=== PATIENT | male | born 1960 | race Caucasian/White ===

== ENCOUNTER → 2017-09-17 | Outpatient (CLI) | payer OTHER | END | disposition home or self-care (01) | LOC: US 12:05 | DX: M25.472 Effusion, left ankle (principal); M71.22 Synovial cyst of popliteal space [Baker], left knee | CPT/HCPCS: 93971 ==

== ENCOUNTER 2020-06-30 08:59 | Day surgery (SDC) | payer OTHER ==
[~2020-06-30] VITALS: Ht 182.9 cm; Wt 122.5 kg
[~2020-06-30 08:59] MED LIST: ASPI-630 PO; CHOL500050 PO; DOXY100C2 PO; EZET10TA20 PO; HYDROmorphone 2 MG/ML VIAL IVP PRN; ILEVRO OS; IV RINGERS,LACTATED 1000ML 1,000 ML IV SCH; LATA2.5D2 OU; LISI20TA18 PO; MONT10TA49 PO; MORPHINE SULFATE 2 MG/ML VIAL. IVP PRN; PROCHLORPERAZINE 10 MG/2 ML VIAL. IVP PRN; TIMO5DRO26 OS; fentaNYL PF VIAL 100 MCG/2 ML VIAL IVP PRN
[2020-06-30] MEDS ORDERED: SEVOFLURANE 61 TO 120 MINUTES. IH ONE (09:17)
[2020-06-30] MEDS ORDERED: LIDOCAINE 2% PF 5 ML VIAL. ONE (09:17)
[2020-06-30] MEDS ORDERED: DEXAMETHASONE SOD PHOS 4 MG/ML VIAL ONE (09:17)
[2020-06-30] MEDS ORDERED: fentaNYL PF VIAL 100 MCG/2 ML VIAL ONE (09:17)
[2020-06-30] MEDS ORDERED: ONDANSETRON PF 4 MG/2 ML VIAL. ONE (09:17)
[2020-06-30] MEDS ORDERED: MIDAZOLAM HCL/PF 2 MG/2 ML VIAL. ONE (09:17)
[2020-06-30] MEDS ORDERED: PROPOFOL 10 MG/ML (20ML) VIAL. IV ONE (09:17)
--- NOTE | 2020-06-30 09:31 | PDOC1 ---
History and Physical Date of Admission Date of Admission DATE: 06/30/20 TIME: :25 History of Present Illness History of Present Illness The patient is a 60 year old male who has been experiencing left temporal pain and left visual problems for several months. He has been followed by opthalmology and received many treatments. His symptoms have persisted however, and he was referred by his PCP for a temporal artery biopsy out of concern for possible temporal arteritis. Past Medical History Past Medical History hypertension, glaucoma, rheumatoid arthritis Past Surgical History Past Surgical History bilateral inguinal hernia repair, rotator cuff surgery, tonsillectomy Family History Family History Father with COPD, dementia, Glaucoma in family Social History Smoke: No Current Medications Current Medications Current Medications Fentanyl Citrate (Fentanyl 2ml Vial) 25 mcg PRN Q5MIN PRN IVP MILD PAIN 1-3; Start 06/30/20 at 06:00; Stop 07/01/20 at 05:59 Fentanyl Citrate (Fentanyl 2ml Vial) 50 mcg PRN Q5MIN PRN IVP MODERATE PAIN 4- 6; Start 06/30/20 at 06:00; Stop 07/01/20 at 05:59 Morphine Sulfate (Morphine Sulfate) 1 mg PRN Q10MIN PRN IVP SEVERE PAIN 7-10; Start 06/30/20 at 06:00; Stop 07/01/20 at 05:59 Ringer's Solution 1,000 ml @ 30 mls/hr Q24H IV ; Start 06/30/20 at 06:00; Stop 06/30/20 at 17:59 Hydromorphone HCl (Dilaudid) 0.5 mg PRN Q10MIN PRN IVP SEVERE PAIN 7-10, 2nd CHOICE; Start 06/30/20 at 06:00; Stop 07/01/20 at 05:59 Prochlorperazine Edisylate (Compazine) 5 mg PACU PRN PRN IVP NAUSEA, MRX1; Start 06/30/20 at 06:00; Stop 07/01/20 at 05:59 Cefazolin Sodium/ Dextrose 50 ml @ 100 mls/hr 1X PREOP PRN IV PRIOR TO PROCEDURE; Start 06/30/20 at 06:00; Stop 06/30/20 at 18:00 Sevoflurane (Ultane) 60 ml STK-MED ONCE IH ; Start 06/30/20 at 09:17; Stop 06/30/20 at 09:17; Status DC Fentanyl Citrate (Fentanyl 2ml Vial) 100 mcg STK-MED ONCE .ROUTE ; Start 06/30/20 at 09:17; Stop 06/30/20 at 09:17; Status DC Midazolam HCl (Versed) 2 mg STK-MED ONCE .ROUTE ; Start 06/30/20 at 09:17; Stop 06/30/20 at 09:17; Status DC Dexamethasone Sodium Phosphate (Decadron) 4 mg STK-MED ONCE .ROUTE ; Start 06/30/20 at 09:17; Stop 06/30/20 at 09:18; Status DC Propofol (Diprivan) 200 mg STK-MED ONCE IV ; Start 06/30/20 at 09:17; Stop 06/30/20 at 09:18; Status DC Lidocaine HCl (Lidocaine Pf 2% Vial) 5 ml STK-MED ONCE .ROUTE ; Start 06/30/20 at 09:17; Stop 06/30/20 at 09:18; Status DC Ondansetron HCl (Zofran) 4 mg STK-MED ONCE .ROUTE ; Start 06/30/20 at 09:17; Stop 06/30/20 at 09:18; Status DC Active Scripts Active Reported [Ilevro] 1 Drop OS BID Betimol (Timolol) 5 Ml Drops 1 Drop OS BID Xalatan (Latanoprost) 2.5 Ml Drops 1 Drop OU QHS Aspirin 81 Mg Tab.chew 81 Mg PO DAILY Vitamin D3 (Cholecalciferol (Vitamin D3)) 1,250 Mcg Capsule 10,000 Units PO DAILY Lisinopril 20 Mg Tablet 20 Mg PO DAILY Zetia (Ezetimibe) 10 Mg Tablet 10 Mg PO DAILY Singulair Tablet (Montelukast Sodium) 10 Mg Tablet 10 Mg PO DAILY PRN Doxycycline Hyclate 100 Mg Capsule 100 Mg PO DAILY Allergies Allergies: Coded Allergies: Sulfa (Sulfonamide Antibiotics) (Unverified Allergy, Intermediate, HIVES, 12/25/14) ALL SULFA Huzazpq-Zam-Rlb Reductase Inhibitor (Verified Adverse Reaction, Intermediate, 06/30/20) MUSCLE PAIN ROS General: No: Chills, Night Sweats, Fatigue, Malaise, Appetite, Other PSYCHOLOGICAL ROS: No: Anxiety, Behavioral Disorder, Concentration difficultie, Decreased libido, Depression, Disorientation, Hallucinations, Hostility, Irritablity, Memory difficulties, Mood Swings, Obsessive thoughts, Physical abuse, Sexual abuse, Sleep disturbances, Suicidal ideation, Other Eyes: Yes Other (halo vision L eye) HEENT: YES: Heacaches (L temporal) ALLERGY AND IMMUNOLOGY: No: Hives, Insect Bite Sensitivity, Itchy/Watery Eyes, Nasal Congestion, Post Nasal Drip, Seasonal Allergies, Other Hematological and Lymphatic: No: Bleeding Problems, Blood Clots, Blood Transfusions, Brusing, Night Sweats, Pallor, Swollen Lymph Nodes, Other ENDOCRINE: No: Breast Changes, Galactorrhea, Hair Pattern Changes, Hot Flashes, Malaise/lethargy, Mood Swings, Palpitations, Polydipsia/polyuria, Skin Changes, Temperature Intolerance, Unexpected Weight Changes, Other Cardiovascular: No Chest Pain, No Palpitations, No Orthopnea, No Paroxysmal Noc. Dyspnea, No Edema, No Lt Headedness, No Other Gastrointestinal: No Nausea, No Vomiting, No Abdominal Pain, No Diarrhea, No Constipation, No Melena, No Hematochezia, No Other Genitourinary: No Dysuria, No Frequency, No Incontinence, No Hematuria, No Retention, No Discharge, No Urgency, No Pain, No Flank Pain, No Other, No , No , No , No , No , No , No Musculoskeletal: No Gait Disturbance, No Joint Pain, No Joint Stiffness, No Joint Swelling, No Muscle Pain, No Muscular Weakness, No Pain In:, No Swelling In:, No Other Neurological: No Behavorial Changes, No Bowel/Bladder ControlChng, No Confusion, No Dizziness, No Gait Disturbance, No Headaches, No Impaired Coord/balance, No Memory Loss, No Numbness/Tingling, No Seizures, No Speech Problems, No Tremors, No Visual Changes, No Weakness, No Other Skin: No Dry Skin, No Eczema, No Hair Changes, No Lumps, No Mole Changes, No Mottling, No Nail Changes, No Pruritus, No Rash, No Skin Lesion Changes, No Other, No Acne Physical Exam General: Alert, Oriented X3 HEENT: Atraumatic, Other (L temporal pulse intact) Lungs: Clear to auscultation Heart: S1S2 Abdomen: Soft, No tenderness Rectal Exam: deferred Extremities: No clubbing, No cyanosis Skin: No rashes, No breakdown Neuro: Normal gait, Normal speech Psych/Mental Status: Mental status NL VTE Prophylaxis Ordered VTE Prophylaxis Devices: Yes VTE Pharmacological Prophylaxi: No Assessment/Plan Assessment/Plan Headache, L temporal pain, visual changes; L temporal artery biopsy was requested; I reviewed the details and risks of surgery with the patient. He understands and would like to proceed. Justifications for Admission Other Justification CINDI MARTINEZ MD Jun 30, 2020 09:31
[2020-06-30] MEDS ORDERED: BUPIVACAINE-EPI 0.5%-1:200000 MPF 30 ML VIAL. ONE (09:36)
[2020-06-30] MEDS ORDERED: GLYCOPYRROLATE 1 MG/5 ML VIAL. ONE (10:28)
[2020-06-30] MEDS ORDERED: ePHEDrine PF IN SALINE 50 MG/10 ML SYRINGE. IV ONE (10:28)
--- NOTE | 2020-06-30 11:23 | PDOC4 ---
Operative Note Operative Note Operative Note: Preoperative Diagnosis: Left temporal pain Postoperative Diagnosis: Same Procedure: Left temporal artery biopsy Surgeon: Robles Dope Worker: SASHA Guidry Anesthesia: General EBL: 10 mL Specimen: Left superficial temporal artery to pathology Drains: None Complications: None Indication: The patient is a 60-year-old male who is referred for temporal artery biopsy. He has been experiencing visual changes and left temporal pain for some time. The details and risks of surgery were discussed. The risks include bleeding, infection, facial nerve branch injury, scar tissue, pain, anesthetic risk, potential need for additional surgery procedure. He understands and would like to proceed. Description: The patient was taken to the operating room and placed supine in the operating table. General anesthesia was performed. The left temporal region was then shaved and prepped with Betadine and draped in a standard surgi kt manner. With a vascular Doppler the course of the temporal artery was traced out and marked on the skin. Were able to see both the frontal and parietal branches. An incision was made in the temporal region following the course of the frontal branch. Cautery dissection was carried through subcutaneous tissues. The temporal artery was identified in the superficial temporal fascia. The artery was mobilized from the surrounding tissues. A several centimeter segment of the artery was selected. The artery was ligated proximally and distally with 3-0 Vicryl. The middle portion was then excised and sent to pathology for evaluation. Hemostasis was good. The subcutaneous tissue was approximated with 3-0 Vicryl. The skin was closed with 4-0 Monocryl and infiltrated with half percent Marcaine with epinephrine. A Steri-Strip and dressing were applied. The patient tolerated the procedure well and was sent to the recovery room in stable condition. At the end of the case all counts were correct. CINDI MARTINEZ MD Jun 30, 2020 11:23
--- NOTE | 2020-06-30 11:26 | DISCH ---
DISCHARGE INSTRUCTIONS Condition on Discharge Condition on Discharge: Stable Activity After Discharge Activity Instructions for Disc: Activity as tolerated Diet after Discharge Diet after Discharge: Regular Wound Incision Care Wound/Incision Care: Other, see below (keep incision site dry X 72 hours, may then shower) Follow-Up Follow up with: Dr Martinez in office in 2 weeks, call for appointment [phone] CINDI MARTINEZ MD Jun 30, 2020 11:26
[2020-06-30] MEDS ORDERED: HYDR-2761 PO (11:33)
[2020-06-30] MEDS ORDERED: PROCHLORPERAZINE 10 MG/2 ML VIAL. ONE (11:55)
[2020-06-30 12:00] VITALS: BP 152/83
[2020-06-30] MEDS ORDERED: HYDROcodone/APAP 5/325MG 1 TAB TABLET PO ONE ×2 (12:00)
--- NOTE | 2020-07-05 16:20 | PATHOLOGY ---
[facility] Accession Number: [id number] . 01 Material submitted: . artery - LEFT TEMPORAL ARTERY . Modifiers: left, SUPERFICIAL, temporal . 01 Clinical history: . REASON FOR VISIT: LEFT SIDED HEAD PAIN PRE-OPERATIVE DIAGNOSIS: LEFT SIDED HEAD PAIN OPERATIVE PROCEDURE: LEFT TEMPORAL ARTERY BIOPSY POST-OPERATIVE DIAGNOSIS: PENDING . 02 Diagnosis: Left superficial temporal artery biopsy: - No significant pathologic abnormalities. ([facility] 07/05/2020) [facility] 07/05/2020 1206 Local . 02 Comment: There is no evidence of temporal arteritis. ([facility] 07/05/2020) . 02 Electronically signed: . Antonio Pool MD, Pathologist NPI- [id number] . 01 Gross description: . Received in formalin labeled "Herbie Epsino, left superficial temporal artery" is a cylindrical hollins-white portion of soft tissue measuring 1.9 cm in length by 0.2 cm in diameter. The specimen is entirely submitted in cassette A1.([facility]; 07/02/2020) [facility] 07/02/2020 1516 Local . 02 Pathologist provided ICD-10: R51.9 . 02 CPT . 026620 Specimen Comment: A courtesy copy of this report has been sent to [phone] Specimen Comment: Report sent to Performed at: 01 [facility] [address], [place] [id number] MD Mike Gutierrez MD Phone: [phone] Performed at: 02 [facility] [address], [place] [id number] MD Antonio Pool MD Phone: [phone]
== END 2020-06-30 12:37 | disposition home or self-care (01) ==
LOC: SURG 08:59
PROVIDERS: ATTEND Surgery
DX: G44.221 Chronic tension-type headache, intractable (principal); I10 Essential (primary) hypertension; E78.00 Pure hypercholesterolemia, unspecified; J44.9 Chronic obstructive pulmonary disease, unspecified; M19.90 Unspecified osteoarthritis, unspecified site; Z79.82 Long term (current) use of aspirin; Z79.899 Other long term (current) drug therapy; Z98.890 Other specified postprocedural states; Z88.2 Allergy status to sulfonamides; Z88.8 Allergy status to other drugs, medicaments and biological substances; Z72.89 Other problems related to lifestyle; Z20.822 Contact with and (suspected) exposure to COVID-19
CPT/HCPCS: 37609; 87426; 88305; A4364; A4930; A6254; C9803; J0690; J0780; J1100; J2405; J2704; J3010; J3490; U0003; A4452; J2250

== ENCOUNTER → 2020-10-25 | Outpatient (CLI) | payer OTHER ==
[~2020-10-25] MED LIST changes: +HYDR-2761 PO; -HYDROmorphone 2 MG/ML VIAL IVP PRN; -IV RINGERS,LACTATED 1000ML 1,000 ML IV SCH; -MORPHINE SULFATE 2 MG/ML VIAL. IVP PRN; -PROCHLORPERAZINE 10 MG/2 ML VIAL. IVP PRN; -fentaNYL PF VIAL 100 MCG/2 ML VIAL IVP PRN
[2020-10-25 10:27] LABS: BASO % 1 % (0-3); EOS # 0.2 x10^3/uL (0.0-0.7); EOS % 4 % (0-3); HEMATOCRIT 39.3 % (39.0-53.0); HEMOGLOBIN 13.8 g/dL (13.0-17.5); LYMPH % 22 % (24-48); MEAN CORPUSCULAR HEMOGLOBIN 31 pg (25-35); MEAN CORPUSCULAR HGB CONC 35 g/dL (31-37); MEAN CORPUSCULAR VOLUME 89 fL (79-100); MONO # 0.5 x10^3/uL (0.0-1.1); MONO % 11 % (0-9); NEUT # 2.8 x10^3/uL (1.8-7.7); NEUT % 63 % (31-73); PLATELET COUNT 255 x10^3/uL (140-400); RED CELL DISTRIBUTION WIDTH 13.1 % (11.5-14.5); WHITE BLOOD COUNT 4.4 x10^3/uL (4.0-11.0)
[2020-10-25 10:33] LABS: CREATININE 0.7 mg/dL (0.7-1.3); GFR 114.6; POTASSIUM 4.3 mmol/L (3.5-5.1)
[2020-10-25 10:34] LABS: PROTHROMBIN TIME PATIENT 11.9 SEC (11.7-14.0)
--- NOTE | 2020-10-25 10:44 | EKG ---
[facility] [address] [place] [address] Test Date: 2020-10-25 Test Time: 10:40:16 Pat Name: KODY ROSARIO Department: Room: Gender: M Group Worker: DAVID : 1960 Requested By: PEYTON VALENTINO Order Number: [id number] Reading MD: Mario Oliva MD Measurements Intervals [place] Rate: 58 P: 0 RI: 168 QRS: 11 QRSD: 88 T: 15 QT: 412 QTc: 408 Interpretive Statements SINUS RHYTHM Electronically Signed On 10-25-2020 20:29:02 CDT by Mario Oliva MD
--- NOTE | 2020-10-25 16:48 | RAD ---
EXAM: XR CHEST 2V 10/25/2020 11:16 AM CLINICAL INDICATION: Preop right hip replacement COMPARISON: None TECHNIQUE: 2 views of the chest FINDINGS: The heart and mediastinum are normal. Lungs are well-expanded and clear. No pleural effusi on or pneumothorax. There is mild degenerative disc disease the lower thoracic spine. Probable prior right distal clavicular resection. IMPRESSION: No acute cardiopulmonary abnormality. Electronically signed by: Betzy Mayorga MD (10/25/2020 4:45 PM) [id number]
== END ==
LOC: SURGPAT 09:50
PROVIDERS: ATTEND Orthopaedic Surgery
DX: Z01.818 Encounter for other preprocedural examination (principal); M16.11 Unilateral primary osteoarthritis, right hip; M51.34 Other intervertebral disc degeneration, thoracic region
CPT/HCPCS: 36415; 71046; 80048; 82040; 82306; 85025; 85610; 85651; 85730; 87641; 93005

== ENCOUNTER 2020-11-09 06:35 | Observation (INO) | payer OTHER ==
[2020-10-25 10:23] VITALS: BP 130/73
[~2020-11-09] VITALS: Ht 182.9 cm; Wt 121.3 kg
[2020-11-09] VITALS (11 sets, daily range): BP systolic 118–158; BP diastolic 56–72
[~2020-11-09 06:35] MED LIST changes: +ACETAMINOPHEN 500 MG TABLET PO PRN; -DOXY100C2 PO; +DOXY100C3 PO; +GABAPENTIN 300 MG CAPSULE. PO PRN; +HYDROmorphone 2 MG/ML VIAL IVP PRN; +IV RINGERS,LACTATED 1000ML 1,000 ML IV SCH; +MELOXICAM 7.5 MG TABLET PO PRN; +MORPHINE SULFATE 2 MG/ML INJ. IVP PRN; +MORPHINE SULFATE 5 MG, KETOROLAC 30MG VIAL 30 MG, ROPIVacaine 0.5% PF 60 ML, EPINEPHrin... INT ART ONE; +PROCHLORPERAZINE 10 MG/2 ML VIAL. IVP PRN; +TRANEXAMIC ACID 1,000 MG in IV NS 50ML -- 1ST BAG INJ ONE; +fentaNYL PF VIAL 100 MCG/2 ML VIAL IVP PRN
[2020-11-09] MEDS ORDERED: PROPOFOL 10 MG/ML (20ML) VIAL. IV ONE ×2 (07:19→09:03)
[2020-11-09] MEDS ORDERED: ONDANSETRON PF 4 MG/2 ML VIAL. ONE (07:20)
[2020-11-09] MEDS ORDERED: DEXAMETHASONE SOD PHOS 4 MG/ML VIAL ONE (07:20)
[2020-11-09] MEDS ORDERED: FAMOTIDINE 20 MG/2 ML VIAL ONE (07:20)
[2020-11-09] MEDS ORDERED: LIDOCAINE 2% PF 5 ML VIAL. ONE (07:20)
[2020-11-09] MEDS ORDERED: fentaNYL PF VIAL 100 MCG/2 ML VIAL ONE ×2 (07:21→11:29)
[2020-11-09] MEDS ORDERED: fentaNYL PF VIAL 100 MCG/2 ML VIAL IVP PRN (07:30)
[2020-11-09] MEDS ORDERED: DEXTROSE 50% 25 GM / 50ML DISP.SYRIN. IV PRN (07:30)
[2020-11-09] MEDS ORDERED: diphenhydrAMINE 50 MG/ML VIAL IVP PRN (07:30)
[2020-11-09] MEDS ORDERED: 0.9 % SODIUM CHLORIDE 10 ML DISP.SYRIN. IV PRN (07:30)
[2020-11-09] MEDS ORDERED: CALCIUM CARBONATE 500 MG TAB.CHEW PO PRN (07:30)
[2020-11-09] MEDS ORDERED: ZOLPIDEM 5 MG TABLET. PO PRN (07:30)
[2020-11-09] MEDS ORDERED: ceFAZolin SODIUM 3 GM in IV DEXTROSE 5% 100ML 100 ML IV SCH (07:45)
[2020-11-09 07:58] LABS: PROTHROMBIN TIME PATIENT 12.3 SEC (11.7-14.0)
[2020-11-09] MEDS ORDERED: TRANEXAMIC ACID 1,000 MG in IV NS 50ML -- 2ND BAG INJ ONE (08:00)
[2020-11-09] MEDS ORDERED: TRANEXAMIC ACID in NS IVPB 100 ML ONE (08:10)
[2020-11-09] MEDS ORDERED: GLYCOPYRROLATE 1 MG/5 ML VIAL. ONE (08:40)
[2020-11-09] MEDS ORDERED: ePHEDrine PF IN SALINE 50 MG/10 ML SYRINGE. IV ONE (08:56)
[2020-11-09] MEDS ORDERED: VANCOMYCIN 1 GM VIAL. ONE (09:01)
[2020-11-09] MEDS ORDERED: hydrALAZINE 20 MG/ML VIAL. ONE (09:09)
[2020-11-09] MEDS ORDERED: HYDROmorphone 2 MG/ML VIAL ONE (09:40)
[2020-11-09] MEDS ORDERED: SEVOFLURANE > 120 MINUTES. IH ONE (11:23)
[2020-11-09] MEDS: fentaNYL PF VIAL 100 MCG/2 ML VIAL IVP PRN ×2 (11:34→11:50)
[2020-11-09] MEDS: ONDANSETRON ODT 4 MG TAB.RAPDIS. PO SCH ×2 (12:00→17:17)
[2020-11-09] MEDS: ONDANSETRON PF 4 MG/2 ML VIAL. IVP SCH ×2 (12:00→17:16)
[2020-11-09] MEDS: MORPHINE SULFATE 2 MG/ML INJ. IVP PRN ×2 (12:10→15:03)
[2020-11-09] MEDS: oxyCODONE IR 5 MG TABLET PO PRN ×3 (12:31→20:47)
[2020-11-09] MEDS: IV NORMAL SALINE 1000ML BAG 1,000 ML IV SCH (14:00)
[2020-11-09] MEDS: ceFAZolin SODIUM 3 GM in IV DEXTROSE 5% 100ML 100 ML IV SCH ×2 (15:01→20:52)
[2020-11-09] MEDS ORDERED: WARFARIN 7.5 MG TABLET. PO ONE (16:00)
--- NOTE | 2020-11-09 16:16 | PDOC4 ---
Operative Note Operative Note Date of surgery: 11/09/2020 Preoperative diagnosis: Degenerative joint disease right hip Postoperative diagnosis: Same Operative procedure: Right total hip arthroplasty with anterior approach Surgeon Vinod Body Finisher: Theo liz Anesthesia: General Estimated blood loss: 350 cc Complications: None Drains: None Operative indications: Please see my orthopedic clinic note and dictated history and physical for detailed operative indications and note that we covered risks benefits postoperative course of the procedure. We specifically discussed the possibility of infection leg length inequality, nerve or blood vessel damage premature wear or loosening medical or other anesthetic complications among others. All his questions were answered and he wishes to proceed with surgical evaluation and treatment having given informed consent Operative text: Patient was identified procedure verified patient placed in the supine position on the [place] fracture table after adequate amounts of general anesthesia were administered. All bony prominences were well-padded and right hip was prepped and draped in the standard sterile fashion. After timeout was performed patient procedure identified and verified an incision was made just distal to the anterior superior iliac spine running along the tensor fascia christie for a distance of about 4 inches. Fascia was incised tensor fascia christie was taken laterally and circumflex vessels were located and coagulated and the anterior capsule was exposed with the rectus femoris gently retracted medially along with the underlying fascia that was dissected free. Capsule was split in a T-shaped incision and superior aspect of the capsule was excised and further superior release was carried out with the hip in external rotation. Hip was returned to 40 degrees external rotation and a napkin ring cut was made with an Avenir Ria broach for reference napkin ring was removed and femoral head was removed and sized. Reaming was carried out to a size 57 with a size 58 Biomet G7 acetabular shell was placed in proper version under fluoroscopic guidance and excellent scratch fit was noted. A 40 mm vitamin E liner was impacted into place. Femur was brought into maximum external rotation extension and adduction and release was carried out at the 11 o'clock position to free up the femur and retractors were placed medially and above the greater trochanter for maximum femoral exposure box osteotome was used along with the rattail rasp and successive size broaching up to a size 6 which provided excellent stability and fit within the canal. Calcar reaming was carried out and trial fitting with a - 3.5 40 mm head to reproduce leg length and offset appropriately under fluoroscopic guidance. Trial components were removed and a size 6 high offset collared Avenir stem was impacted into place with a -3.5 ceramic 40 mm head. Excellent stability and range of motion were noted and leg length and offset were reproduced closely according to preoperative measurements and measurements from the contralateral side. Thorough irrigation carried out with normal saline solution and pulse lavage. Intra-articular mixture was injected subperiosteally throughout the joint capsule and subcutaneous areas and 1 g vancomycin sprinkled throughout the joint capsule area. Fascia was closed with #1 PDS strata fix suture in a running fashion subcutaneous closure with buried Vicryl skin closure with subcuticular Monocryl and a dre dressing was applied. Patient was returned to recovery room in stable condition having tolerated the procedure well. Theo liz was present for the procedure and assisted in the patient positioning prepping draping retraction closure and dressings PEYTON VALNETINO MD Nov 09, 2020 16:16
[2020-11-09] MEDS: FERROUS SULFATE 325 MG TABLET. PO SCH (17:16)
[2020-11-09] MEDS: LATANOPROST 0.005% OPHTH SOLUTION 2.5ML BOTTLE. OU SCH (20:53)
[2020-11-09] MEDS: TIMOLOL 0.25% OPHTH SOLUTION 5ML BOTTLE. OS SCH (20:53)
[2020-11-10] MEDS: MORPHINE SULFATE 2 MG/ML INJ. IVP PRN
[2020-11-10] MEDS: ceFAZolin SODIUM 3 GM in IV DEXTROSE 5% 100ML 100 ML IV SCH (03:03)
[2020-11-10 03:20] VITALS: BP 120/74
[2020-11-10] MEDS: oxyCODONE IR 5 MG TABLET PO PRN ×4 (04:11→20:43)
[2020-11-10] MEDS ORDERED: MAGNESIUM HYDROXIDE 2,400 MG/30 ML ORAL.SUSP. PO PRN (06:00)
[2020-11-10] MEDS ORDERED: GABAPENTIN 100 MG CAPSULE. PO SCH (06:00)
[2020-11-10] MEDS: ONDANSETRON PF 4 MG/2 ML VIAL. IVP SCH ×2 (06:00)
[2020-11-10] MEDS: ONDANSETRON ODT 4 MG TAB.RAPDIS. PO SCH ×2 (06:00)
[2020-11-10] MEDS: traMADol 50 MG TABLET PO SCH ×3 (06:00→18:04)
[2020-11-10 06:58] LABS: PROTHROMBIN TIME PATIENT 15.5 SEC (11.7-14.0)
[2020-11-10 07:00] VITALS: BP 136/66
--- NOTE | 2020-11-10 08:00 | NUR ---
resting in bed. He has good sensation, motion and pulses bilateral lower extremities. He is swollen about 2-3+ edema in the right hip area and thigh. He is rating his pain "8" this am. Plan of care is to given oxy with Tylenol and the tramadol every 6hrs. if pain does not come down will given iv pain medication. dressing to right hip is clean and dry. at bedside. agree with plan.
[2020-11-10] MEDS: MULTIVITAMIN with MINERAL TABLET. PO SCH (08:18)
[2020-11-10] MEDS: MELOXICAM 7.5 MG TABLET PO SCH (08:19)
[2020-11-10] MEDS: ACETAMINOPHEN 500 MG TABLET PO SCH ×3 (08:19→20:43)
[2020-11-10] MEDS: FERROUS SULFATE 325 MG TABLET. PO SCH ×2 (08:19→18:04)
[2020-11-10] MEDS: TIMOLOL 0.25% OPHTH SOLUTION 5ML BOTTLE. OS SCH ×3 (08:20→21:00)
[2020-11-10] MEDS: LISINOPRIL 20 MG TABLET PO SCH (08:20)
[2020-11-10 09:29] LABS: HEMATOCRIT 31.6 % (39.0-53.0); HEMOGLOBIN 10.9 g/dL (13.0-17.5)
[2020-11-10 11:00] VITALS: BP 123/54
--- NOTE | 2020-11-10 11:57 | NUR ---
Pharmacy Warfarin Dosing Note S:Pharmacy consulted to assist with anticoagulation therapy started 11/16/20 with target INR: 2 -3 O:KODY ROSARIO is a 60 year old M with MELVIN LABS: Last INR: 1.2 Last HGB: 10.9 Last HCT: 31.6 Last PLT: Last dose of 7.5 mg given on 11/09/20 at 1715 Previous Regimen: Vitamin K given: Drug Interaction Changes: Ongoing Drug Interactions: A:INR of 1.2 is below desired range. Target range for this patient is: 1.6-2.5 P: Warfarin dose: 5 mg Today at 1600 Bridge Therapy: None Next INR due 11/11/20. Pharmacy anticoagulation service will continue to follow. TRINY GOFF RPH, 11/10/20 0154
[2020-11-10] MEDS ORDERED: ONDANSETRON PF 4 MG/2 ML VIAL. IVP PRN (12:00)
[2020-11-10] MEDS ORDERED: ONDANSETRON ODT 4 MG TAB.RAPDIS. PO PRN (12:00)
[2020-11-10] MEDS: IV NORMAL SALINE 1000ML BAG 1,000 ML IV SCH (12:00)
--- NOTE | 2020-11-10 12:27 | PDOC ---
PROGRESS NOTES Date of Service DATE: 11/10/20 TIME: 12:25 Subjective Subjective Problems overnight: Painful over muscles, some relief in the joint and getting up and around well with physical therapy with use of walker Objective Vital Signs Vital Signs Date Time Temp Pulse Resp B/P (MAP) Pulse Ox O2 Delivery O2 Flow Rate FiO2 11/10/20 12:24 20 11/10/20 11:00 98.2 60 123/54 (77) 93 Room Air 98.2 11/09/20 23:20 2.0 Physical Exam Candy dressing clean dry intact distal neurovascular status intact leg lengths equal good stability Labs Laboratory Tests Test 11/09/20 06:58 11/10/20 05:40 Prothrombin Time 12.3 SEC (11.7-14.0) 15.5 SEC (11.7-14.0) Prothromb Time International Ratio 0.9 (0.8-1.1) 1.2 (0.8-1.1) Activated Partial Thromboplast Time 27 SEC (24-38) Hemoglobin 10.9 g/dL (13.0-17.5) Hematocrit 31.6 % (39.0-53.0) Mean Corpuscular Hemoglobin Concent 35 g/dL (31-37) Laboratory Tests Test 11/10/20 05:40 Hemoglobin 10.9 g/dL (13.0-17.5) Hematocrit 31.6 % (39.0-53.0) Mean Corpuscular Hemoglobin Concent 35 g/dL (31-37) Prothrombin Time 15.5 SEC (11.7-14.0) Prothromb Time International Ratio 1.2 (0.8-1.1) Imaging Intraoperative imaging shows equal leg lengths and offset with well placed total hip arthroplasty under fluoroscopic guidance Assessment Assessment POD#1 total hip arthroplasty Plan Plan of Care Continue mobilize with physical therapy Warfarin anticoagulation Likely home health on discharge Justicifation of Admission Dx: Justifications for Admission: Justification of Admission Dx: N/A PEYTON VALENTINO MD Nov 10, 2020 12:27
[2020-11-10 15:00] VITALS: BP 106/50
[2020-11-10] MEDS ORDERED: BISACODYL 10 MG SUPP.RECT. PR PRN (16:00)
[2020-11-10] MEDS ORDERED: WARFARIN 5 MG TABLET. PO ONE (16:00)
--- NOTE | 2020-11-10 17:00 | NUR ---
pain control is fair. He is rating his pain around a "5-6" He thinks it can be controlled orally. tolerating liquids and food without problems. continues to have problems lifting his right foot. ice placed on incisional area to help with pain and swelling
[2020-11-10 19:00] VITALS: BP 120/56
[2020-11-10] MEDS: LATANOPROST 0.005% OPHTH SOLUTION 2.5ML BOTTLE. OU SCH (21:00)
[2020-11-10 22:58] VITALS: BP 116/49
[2020-11-11] MEDS: traMADol 50 MG TABLET PO SCH ×4 (00:10→17:11)
[2020-11-11 02:40] VITALS: BP 106/48
[2020-11-11] MEDS: ACETAMINOPHEN 500 MG TABLET PO SCH ×4 (03:00→19:33)
[2020-11-11] MEDS: oxyCODONE IR 5 MG TABLET PO PRN ×4 (04:10→19:30)
[2020-11-11 04:58] LABS: HEMATOCRIT 30.2 % (39.0-53.0); HEMOGLOBIN 10.4 g/dL (13.0-17.5)
[2020-11-11 04:59] LABS: PROTHROMBIN TIME PATIENT 18.5 SEC (11.7-14.0)
[2020-11-11 07:00] VITALS: BP 97/52
[2020-11-11] MEDS: LISINOPRIL 20 MG TABLET PO SCH (08:37)
[2020-11-11] MEDS: FERROUS SULFATE 325 MG TABLET. PO SCH ×2 (08:37→17:10)
[2020-11-11] MEDS: MULTIVITAMIN with MINERAL TABLET. PO SCH (08:37)
[2020-11-11] MEDS: MELOXICAM 7.5 MG TABLET PO SCH (08:38)
[2020-11-11] MEDS: TIMOLOL 0.25% OPHTH SOLUTION 5ML BOTTLE. OS SCH (08:39)
[2020-11-11 11:00] VITALS: BP 107/65
[2020-11-11] MEDS: IV NORMAL SALINE 1000ML BAG 1,000 ML IV SCH (12:00)
--- NOTE | 2020-11-11 13:09 | NUR ---
Pharmacy Warfarin Dosing Note S: Pharmacy consulted to assist with anticoagulation therapy started 11/16/20 O: KODY ROSARIO is a 60 year old M with MELVIN LABS: Last INR: 1.6 Last HGB: 10.4 Last HCT: 30.2 Last dose of 7.5 mg given on 11/10/20 at 1805 Ongoing Drug Interactions: MOBIC A:INR of 1.6 is within desired range. Target range for this patient is: 1.6 - 2.5 P: Warfarin dose: 3 mg Today at 1600 Bridge Therapy: None Next INR due 11/12/20 AM Pharmacy anticoagulation service will continue to follow. DILLON LÓPEZ RPH, 11/11/20 1830
[2020-11-11 15:00] VITALS: BP 123/56
[2020-11-11] MEDS ORDERED: WARFARIN 3 MG TABLET. PO ONE (16:00)
[2020-11-11] MEDS ORDERED: WARF3TAB50 PO (16:29)
[2020-11-11] MEDS ORDERED: TRAM50TA PO (19:15)
[2020-11-11] MEDS ORDERED: OXYC5CAP PO (19:15)
--- NOTE | 2020-11-11 19:17 | DISCH ---
DISCHARGE INSTRUCTIONS Condition on Discharge Condition on Discharge: Stable Activity After Discharge Activity Instructions for Disc: Progressive ambulation Other activity instructions: use walker until released; apply ice to hip at least 4x's a day elevate leg Bathing Instructions: Shower-keep dressing dry Lifting Instructions after Dis: No heavy lifting, No pulling or pushing, Do not lift >10 pounds Exercise Instruction after Dis: Exercise per therapy Driving Instructions after Dis: Do not drive Weight Bearing Status after Di: No restrictions, Full weight bearing, As tolerated Diet after Discharge Diet after Discharge: Regular Wound Incision Care Wound/Incision Care: Ice to area for comfort, Keep wound elevated, Do not change dressing (When suction machine stops at 1 week postop, discard suction device and cut tail of drain and tape over to maintain seal, call if saturated) Other wound/incision instructi: remove battery pack 11/16 unscrew tubing tape end downwards Checks after Discharge DC Comment: increase fruits, vegetables and fiber may take an otc laxative if needed Community/Resources/Services Services at Discharge: PT EVALUATE & TREAT, OT Evaluate & Treat Contacting the after DC Call your doctor for: Concerns you may have Follow-Up Follow Up With: F/U with [place] on 11/22 at 0900 if need to resched call [phone] Treatment/Equipment after DC Adaptive Equipment Issued: None Comment: PT/INR to be drawn every sunday starting 11/15;11/22; Warfarin Follow-Up Warfarin Follow UP: [facility] to manage coumadin if question call [phone] PEYTON VALENTINO MD Nov 11, 2020 19:17
--- NOTE | 2020-11-11 21:02 | DS ---
DATE OF DISCHARGE: 11/11/2020 PRINCIPAL DIAGNOSIS: Degenerative joint disease, right hip. PROCEDURE: Right total hip arthroplasty, anterior. DISCHARGE MEDICATIONS: Include oxycodone 5 mg p.o. q.4 hours p.r.n. severe pain, tramadol 50 mg p.o. q.4 hours p.r.n. moderate pain, warfarin as directed by Anticoagulation Clinic. Maintain preoperative medications. DISCHARGE INSTRUCTIONS: Activity is weightbearing as tolerated. Avoid extremes of range of motion of the hip. Call if dressing is saturated, otherwise cut tail of dressing and tape over to maintain seal. Follow up with Dr. Brock or Dr. Taveras 2 weeks postoperatively. BRIEF DESCRIPTION OF HOSPITAL COURSE: The patient underwent uncomplicated anterior approach total hip arthroplasty. Postoperative day #1, was quite sore and had some difficulty getting around. With physical therapy on postop day #2, had much better pain control. Hemoglobin 10.5. Maintained medically stable, pain well controlled, on oral antibiotics and initially was having difficulty voiding, however has no problem on day of discharge and was discharged home in stable condition with outpatient physical therapy plans. VERNELL/RAKESH DR: Fanny TID: [id number]
--- NOTE | 2020-11-12 13:10 | PATHOLOGY ---
[facility] Accession Number: [id number] . 01 Material submitted: . hip - RIGHT HIP BONE AND TISSUE. Modifiers: right . 01 Clinical history: . RT HIP OA RT TOTAL HIP ARTHROPLASTY . 02 Diagnosis: Segments of bone and articular cartilage, right total hip arthroplasty: - Advanced degenerative arthritis. (JPM:pit; 11/12/2020) QTP 11/12/2020 0908 Local . 02 Electronically signed: . Antonio Pool MD, Pathologist NPI- [id number] . 01 Gross description: . The specimen is received in formalin, labeled "Herbie Espino and right hip bone and tissue". It consists of 2 hollins, focally hemorrhagic irregular bony tissue fragments measuring 4.5 and 5.5 cm. One segment displays a smooth articular surface with eburnation-like changes. Opposite the articular surface is a smooth resection surface. A pharmacy services representative section is submitted in A1 following decalcification. (MRF; 11/09/2020) MFE/MFE 11/09/2020 1604 Local . 02 Pathologist provided ICD-10: M16.11 . 02 CPT . 942204, [id number] Specimen Comment: A courtesy copy of this report has been sent to [phone] Specimen Comment: [id number] Specimen Comment: Report sent to / DR RIVERA Performed at: 01 [facility] [address], [place] [id number] MD Mike Gutierrez MD Phone: [phone] Performed at: 02 [facility] [address] [place], [place] [id number] MD Antonio Pool MD Phone: [phone]
--- NOTE | 2020-11-17 11:28 | NUR ---
Late entry - cefazolin infusion started on 11/10/2020 at 0303 stopped on 11/10/2020 at 0333.
== END 2020-11-11 19:55 | disposition home or self-care (01) ==
LOC: SURG 06:35 → 4 NORTH 07:25
PROVIDERS: ADMIT Orthopaedic Surgery; ATTEND Orthopaedic Surgery
DX: M16.11 Unilateral primary osteoarthritis, right hip (principal); Z79.899 Other long term (current) drug therapy; Z79.01 Long term (current) use of anticoagulants
CPT/HCPCS: 27130; 36415; 76000; 85014; 85018; 85610; 85730; 86850; 86900; 86901; 88304; 88311; 96361; 96365; 96366; 96375; 96376; 97110; 97116; 97150; 97162; 97166; 97530; 97535; A4213; A4930; A6223; A6258; A6402; A6550; C1755; C1776; G0378; G0379; J0171; J0360; J0690; J1170; J1885; J2270; J2405; J2704; J2795; J3010; J3370; J3490; J7030; J7060; J1100